=== PATIENT | female | born 1970 | race Caucasian/White ===

== ENCOUNTER 2024-03-25 12:07 | Outpatient (CLI) | payer MEDICAID, SELFPAY ==
--- NOTE | 2024-03-25 12:13 | MRR_ITS ---
PROCEDURE INFORMATION: Exam: MR Abdomen Without Contrast Exam date and time: 03/25/2024 12:36 PM Age: 54 years old Clinical indication: Abdominal pain; Generalized; Additional info: Generalized abdominal pain TECHNIQUE: Imaging protocol: Magnetic resonance imaging of the abdomen without contrast. COMPARISON: No relevant prior studies available. FINDINGS: Liver: No mass. Gallbladder and biliary ducts: Unremarkable. No stones. No ductal dilation. Pancreas: Unremarkable. No ductal dilation. Spleen: Unremarkable. No splenomegaly. Adrenal glands: Unremarkable. No mass. Kidneys and ureters: Unremarkable. No solid mass. No hydronephrosis. Stomach and bowel: Visualized stomach and intestines are unremarkable. Intraperitoneal space: No free fluid. Vasculature: No abdominal aortic aneurysm. Lymph nodes: No enlarged nodes. Bones/joints: Unremarkable. No suspicious lesions. Soft tissues: Unremarkable. MR/MR abdomen wo/w con* [id number] IMPRESSION: Unremarkable abdomen.
[2024-03-25] MEDS: gadobenate dimeglumine 20 mL vial IV (12:52)
== END 2024-03-25 12:08 | disposition home or self-care (01) ==
LOC: RAD 12:09
PROVIDERS: PCP Nurse Practitioner; Visit Provider Nurse Practitioner
DX: R10.84 Generalized abdominal pain (principal)
CPT/HCPCS: 74183; A9577

== ENCOUNTER 2024-12-31 13:55 | Outpatient (CLI) | payer MEDICAID, SELFPAY ==
--- NOTE | 2024-12-31 14:08 | CT_ITS ---
WS: [id number] CT chest w con* [id number] HISTORY: SUBACUTE COUGH/ABNORMAL WEIGHT LOSS TECHNIQUE: Axial imaging performed through the thorax. Coronal and sagittal reformats are submitted. All CT scans at [facility] use at least one of these dose optimization techniques: automated exposure control; mA and/or kV adjustment per patient size (includes targeted exams where dose is matched to clinical indication); or iterative reconstruction. CONTRAST: Omnipaque 350; 100 mL IV. DLP: 258.71 mGy.cm COMPARISON: None available. Lungs and central airway: Severe centrilobular emphysema. There is a mixed attenuation mass in the LEFT upper lobe towards the lingula. Multiple contiguous nodular components with groundglass attenuation. The entire complex measures 3.5 x 2.0 x 2.8 cm. There is mild tethering and extension towards the pleura. Highly suspicious for neoplasm until proven otherwise. Minimal scarring along the anterior RIGHT upper lobe. Pleura: Normal. No pleural effusion. Heart and pericardium: Mild cardiomegaly. Mediastinum and sivakumar: No pathologically enlarged mediastinal or hilar lymph nodes. No axillary adenopathy. Vessels: Mild atherosclerosis aorta. Normal size pulmonary artery. Chest wall and lower neck: No soft tissue masses. Upper abdomen: Bilateral adrenal gland nodules. Largest on the LEFT is 9 mm. 8 mm RIGHT adrenal nodule. Visualized liver is negative. Osseous structures: No destructive process. CT/CT chest w con* [id number] IMPRESSION: 1. Heterogeneous mass with groundglass send continuous nodules in the LEFT upp er lobe measures 3.5 x 2.0 x 2.8 cm. Suspicious for pulmonary neoplasm until pr oven otherwise. Recommend PET/CT. 2. Subcentimeter bilateral adrenal nodules. Benign adenomas versus metastatic disease. 3. Severe centrilobular emphysema. 4. No pathologically enlarged mediastinal or hilar lymph nodes.
[2024-12-31] MEDS: iohexol 350 mg/mL 500 mL Btl (per mL) IV (14:40)
== END 2024-12-31 13:56 | disposition home or self-care (01) ==
LOC: RAD 13:57
PROVIDERS: PCP Nurse Practitioner; Visit Provider Nurse Practitioner
DX: R93.89 Abnormal findings on diagnostic imaging of other specified body structures (principal); R91.8 Other nonspecific abnormal finding of lung field; E27.8 Other specified disorders of adrenal gland; J43.2 Centrilobular emphysema; I51.7 Cardiomegaly; I70.0 Atherosclerosis of aorta
CPT/HCPCS: 71260

== ENCOUNTER 2025-02-06 09:58 | Outpatient (CLI) | payer MEDICAID, SELFPAY ==
--- NOTE | 2025-02-06 10:28 | PETR_ITS ---
PROCEDURE INFORMATION: Exam: PET/CT Skull Base to Mid-thigh Exam date and time: 02/06/2025 11:12 AM Age: 56 years old Clinical indication: Abnormal findings; Heterogeneous mass with groundglass send continuous nodules in the left upper lobe measures 3.5. X 2.0 x 2.8 cm. Suspicious for pulmonary neoplasm until proven otherwise. Recommend pet/ct. ; Additional info: Abnormal imaging LABS AND CLINICAL REPORTS: Glucose: 94 mg/dl Treatment strategy for malignancy (PET staging): Initial Staging (PI) TECHNIQUE: Imaging protocol: Following at least four-hour fasting and following the injection of radiopharmaceutical, low dose CT images were obtained. Then, PET images were obtained. Attenuation corrected images were constructed using the CT scan. Fused images of PET and CT were reviewed. The standardized uptake values (SUV) reported below are maximum values within a region of interest, expressed in gm/ml. Exam includes orbital meatal line to mid-thigh. SUV normalization method: BodyWeight Radiopharmaceutical: 11.49 mCi F-18 FDG (Fluorodeoxyglucose), IV. Time of imaging post radiopharmaceutical administration: 46 minutes Injection site: right ac COMPARISON: 1. CT chest w con* [id number] 12/31/2024 2:33 PM 2. MR abdomen wo/w con* [id number] 03/25/2024 12:36 PM FINDINGS: Brain: Visualized brain has normal physiologic uptake. Pharynx: No abnormal uptake. Larynx: No abnormal uptake. Lungs, pleura and trachea: Advanced upper lung predominant emphysematous change. Irregular left upper lobe mass measuring approximately 3.9 x 2.7 cm on axial image 89 shows SUV max 12.1. Stable non FDG avid subpleural 5 mm right basilar nodule on axial image 102. Mild dependent atelectasis. Calcified granulomata. Heart: Normal physiologic uptake. Coronary arteries: Mild coronary artery calcification. Mediastinal space: No abnormal uptake. Diaphragm: Small fat containing right Bochdalek's hernia. Liver: No abnormal uptake. Gallbladder and biliary ducts: No abnormal uptake. Pancreas: No abnormal uptake. Spleen: No abnormal uptake. Adrenal glands: No abnormal uptake. Stable small bilateral adrenal nodules without FDG avidity likely representing adenomas. Kidneys and ureters: Normal physiologic uptake. Stomach and bowel: No abnormal uptake. Reproductive: The uterus appears surgically absent. Vasculature: No abnormal uptake. Moderate to heavy systemic atherosclerotic calcification without aortic aneurysm. Lymph nodes: Right hilar FDG uptake without discretely measurable node shows SUV max 3.9 on axial images 82 and 93. Lower level uptake at nonenlarged mediastinal nodes, 1 of which shows calcification at the precarinal region with SUV max 2.6. Nonenlarged subcarinal node shows SUV max 2.9. Left hilar uptake without discretely measurable node shows SUV max 3.0 on axial image 77. Skeleton: No abnormal uptake in the visualized axial and appendicular skeleton. Transitional lumbosacral anatomy with left-sided pseudoarticulation. Soft tissues: No abnormal uptake in the visualized head, neck, chest, abdomen, pelvis, and extremities. METRICS: Mediastinal blood pool: SUV mean 2.0 Liver uptake: SUV mean 2.4 PET/PET skull to thigh INIT [id number] IMPRESSION: 1. FDG-avid left upper lobe mass highly suspicious for malignancy. 2. Mediastinal and bilateral hilar FDG uptake without enlarged lymphadenopathy, greatest uptake at the right hilum with lower level mediastinal and left hilar uptake. Consideration for reactive or granulomatous process, neoplastic involvement difficult to entirely exclude. 3. Non FDG avid 5 mm right basilar pulmonary nodule is likely benign. 4. Stable small bilateral adrenal nodules without FDG avidity likely representing adenomas. 5. Additional chronic and incidental findings as above.
== END 2025-02-06 09:59 | disposition home or self-care (01) ==
PROVIDERS: PCP Nurse Practitioner; Visit Provider Internal Medicine
DX: R91.8 Other nonspecific abnormal finding of lung field (principal); J43.9 Emphysema, unspecified; Z72.0 Tobacco use; E27.8 Other specified disorders of adrenal gland; J98.11 Atelectasis; J84.10 Pulmonary fibrosis, unspecified; I25.10 Atherosclerotic heart disease of native coronary artery without angina pectoris; R93.89 Abnormal findings on diagnostic imaging of other specified body structures; I70.0 Atherosclerosis of aorta
CPT/HCPCS: 78815; A9552